=== PATIENT | male | born 1970 | race Caucasian/White ===

== ENCOUNTER 2022-05-17 08:49 | Outpatient (CLI) | payer OTHER, SELFPAY ==
[2022-05-17 09:05] LABS: Basophils Absolute Auto 0.03 K/mm3 (0.00-0.10); Basophils Percent Auto 0.3 % (0.0-1.0); Eosinophils Absolute Auto 0.55 K/mm3 (0.02-0.50); Eosinophils Percent Auto 5.1 % (1.0-6.0); Hematocrit 41.3 % (40.0-54.0); Hemoglobin 13.7 g/dL (14.0-18.0); Immature Granulocyte Absolute 0.04 K/mm3 (0.00-0.00); Immature Granulocyte Percent A 0.4 % (0.0-0.0); Lymphocytes Percent Auto 13.9 % (18.0-42.0); Mean Corpuscular HGB Conc 33.2 g/dL (32.0-36.0); Mean Corpuscular Hemoglobin 28.8 pg (27.0-31.0); Mean Corpuscular Volume 86.8 fL (78.0-102.0); Mean Platelet Volume 10.6 fl (8.7-11.0); Monocytes Percent Auto 8.3 % (2.0-11.0); Neutrophils Absolute Auto 7.8 K/mm3 (1.7-7.2); Platelet Count Result 246 K/mm3 (150-420); Red Blood Count 4.76 M/mm3 (4.70-6.10); Red Cell Distribution Width 13.2 % (11.6-14.4); White Blood Count 10.8 K/mm3 (4.8-10.8)
[2022-05-17 09:06] LABS: Add Urine Microscopic? NO; Appearance Urine Clear (Clear); Bilirubin Urine Negative (Negative); Blood Urine Negative (Negative); Color Urine Yellow (Yellow); Glucose Urine UA Negative (Negative); Ketones Urine Negative (Negative); Leukocyte Esterase Ur Negative (Negative); Nitrate Urine Negative (Negative); Protein Urine Negative (Negative); Urobilinogen Urine 0.2 mg/dL (0.2-1.0); pH Urine 6.5 (5.0-8.0)
[2022-05-17 09:14] LABS: Creatinine Urine 130.39 mg/dL (40-278); MALB Creatinine Ratio 40.6 mg/g (0-30)
[2022-05-17 09:50] LABS: Alanine Aminotransferase 25 U/L (16-63); Albumin Level 3.5 g/dL (3.4-5.0); Alkaline Phosphatase 53 U/L (46-116); Anion Gap 9 mmol/L (8-16); Aspartate Amino Transferase 17 U/L (15-37); Bilirubin,Total 0.9 mg/dL (0.00-1.00); Blood Urea Nitrogen 23 mg/dL (7-18); Calcium 9.1 mg/dL (8.5-10.1); Carbon Dioxide 25 mmol/L (21-32); Chloride 107 mmol/L (98-108); Cholesterol 105 mg/dL (0-200); Creatine Kinase 135 U/L (39-308); Estimated Glomerular Filt Rate 56; Free T3 2.25 pg/mL (2.18-3.98); Free T4 Free Thyroxine 1.05 ng/dL (0.76-1.46); Glucose 92 mg/dL (70-99); HDL Direct 43 mg/dL (40-60); LDL Cholesterol Calculated 47 mg/dL (<130); NT Pro B Type Natriuretic Pept 113 pg/mL (0-125); Osmolality Calculated 295 mOsm/kg (285-295); Potassium 4.3 mmol/L (3.5-5.1); Prostate Specific Antigen 0.3 ng/mL (< OR = 4.0); Sodium 141 mmol/L (136-145); Thyroid Stimulating Hormone 1.53 uIU/mL (0.36-3.74); Total Protein 7.3 g/dL (6.4-8.2); Triglycerides 77 mg/dL (0-150)
== END 2022-05-17 08:50 | disposition home or self-care (01) ==
LOC: CHSLAB 08:52
PROVIDERS: PCP Internal Medicine; Visit Provider Internal Medicine
DX: E78.2 Mixed hyperlipidemia (principal); E11.65 Type 2 diabetes mellitus with hyperglycemia; I25.10 Atherosclerotic heart disease of native coronary artery without angina pectoris; I10 Essential (primary) hypertension; Z12.5 Encounter for screening for malignant neoplasm of prostate; R53.82 Chronic fatigue, unspecified; I48.20 Chronic atrial fibrillation, unspecified; R06.00 Dyspnea, unspecified
CPT/HCPCS: 36415; 80053; 80061; 81003; 82043; 82550; 83036; 83880; 84153; 84439; 84443; 84481; 85025; G0103

== ENCOUNTER 2022-07-29 10:51 | Outpatient (CLI) | payer OTHER, SELFPAY ==
--- NOTE | ~2022-07-29 | XR_ITS ---
EXAM: XR foot RT min 3V DATE: 07/29/2022 11:21 HISTORY: dumbbell dropped on foot 1wk ago, dorsal pain/swelling/wound . COMPARISON: None available. FINDINGS: Normal mineralization. No fracture or dislocation. No lytic or blastic lesion. Plantar and Achilles enthesopathy. Degenerative changes in the tibiotalar joint and multiple midfoot joints. Pro minent os navicularis, which can be a source of chronic medial pain in some patients. No erosion or p eriosteal change. Dorsal soft tissue swelling/contusion. Vascular calcification. IMPRESSION: No acute osseous finding in the right foot. Reviewed, dictated and finalized at location K.
== END 2022-07-29 10:52 | disposition home or self-care (01) ==
LOC: CHSIMG 10:54
PROVIDERS: PCP Internal Medicine; Visit Provider Internal Medicine
DX: S99.921A Unspecified injury of right foot, initial encounter (principal)
CPT/HCPCS: 73630

== ENCOUNTER 2023-01-10 08:37 | Outpatient (CLI) | payer OTHER, SELFPAY ==
[2023-01-10 08:54] LABS: Basophils Absolute Auto 0.04 K/mm3 (0.00-0.10); Basophils Percent Auto 0.4 % (0.0-1.0); Eosinophils Absolute Auto 0.62 K/mm3 (0.02-0.50); Eosinophils Percent Auto 6.6 % (1.0-6.0); Hematocrit 41.6 % (40.0-54.0); Hemoglobin 13.6 g/dL (14.0-18.0); Immature Granulocyte Absolute 0.02 K/mm3 (0.00-0.00); Immature Granulocyte Percent A 0.2 % (0.0-0.0); Lymphocytes Absolute Auto 1.77 K/mm3 (1.10-4.50); Lymphocytes Percent Auto 18.9 % (18.0-42.0); Mean Corpuscular HGB Conc 32.7 g/dL (32.0-36.0); Mean Corpuscular Hemoglobin 28.3 pg (27.0-31.0); Mean Corpuscular Volume 86.7 fL (78.0-102.0); Mean Platelet Volume 10.5 fl (8.7-11.0); Monocytes Absolute Auto 0.97 K/mm3 (0.10-0.90); Monocytes Percent Auto 10.3 % (2.0-11.0); Neutrophils Percent Auto 63.6 % (50.0-70.0); Platelet Count Result 250 K/mm3 (150-420); Red Cell Distribution Width 13.4 % (11.6-14.4); White Blood Count 9.4 K/mm3 (4.8-10.8)
[2023-01-10 08:55] LABS: Add Urine Microscopic? YES; Appearance Urine Clear (Clear); Bilirubin Urine Negative (Negative); Blood Urine Trace-Intact (Negative); Color Urine Light Yellow (Yellow); Glucose Urine UA Negative (Negative); Ketones Urine Negative (Negative); Leukocyte Esterase Ur Negative LEU/UL (Negative); Nitrate Urine Negative (Negative); Protein Urine 2+ (Negative); Urobilinogen Urine 0.2 mg/dL (0.2-1.0); pH Urine 7.5 (5.0-8.0)
[2023-01-10 09:02] LABS: WBC Urine 0-3 /hpf (0-3)
[2023-01-10 09:03] LABS: Bacteria Urine None seen /hpf; Squamous Epithelial Cell Urine Rare /hpf (Few)
[2023-01-10 09:10] LABS: Hemoglobin A1C 6.8 % (<5.7)
[2023-01-10 10:16] LABS: Alanine Aminotransferase 11 U/L (16-63); Albumin Level 3.5 g/dL (3.4-5.0); Alkaline Phosphatase 66 U/L (46-116); Anion Gap 10 mmol/L (8-16); Aspartate Amino Transferase 13 U/L (15-37); Bilirubin,Total 0.5 mg/dL (0.00-1.00); Blood Urea Nitrogen 17 mg/dL (7-18); Calcium 8.5 mg/dL (8.5-10.1); Carbon Dioxide 26 mmol/L (21-32); Chloride 105 mmol/L (98-108); Cholesterol 131 mg/dL (0-200); Creatine Kinase 126 U/L (39-308); Estimated Glomerular Filt Rate > 60; Free T3 2.81 pg/mL (2.18-3.98); Free T4 Free Thyroxine 1.03 ng/dL (0.76-1.46); Glucose 210 mg/dL (70-99); HDL Direct 47 mg/dL (40-60); LDL Cholesterol Calculated 68 mg/dL (<130); Osmolality Calculated 299 mOsm/kg (285-295); Potassium 4.2 mmol/L (3.5-5.1); Sodium 141 mmol/L (136-145); Thyroid Stimulating Hormone 2.07 uIU/mL (0.36-3.74); Triglycerides 82 mg/dL (0-150)
== END 2023-01-10 08:38 | disposition home or self-care (01) ==
LOC: CHSLAB 08:39
PROVIDERS: PCP Internal Medicine; Visit Provider Internal Medicine
DX: E11.59 Type 2 diabetes mellitus with other circulatory complications (principal); E78.2 Mixed hyperlipidemia; I10 Essential (primary) hypertension
CPT/HCPCS: 36415; 80053; 80061; 81001; 82550; 83036; 84439; 84443; 84481; 85025

== ENCOUNTER → 2023-07-01 15:10 | Outpatient (REF) | payer OTHER, SELFPAY | LOC: ANHLAB 15:10 | PROVIDERS: PCP Internal Medicine; Visit Provider Plastic Surgery | DX: C44.629 Squamous cell carcinoma of skin of left upper limb, including shoulder (principal) | CPT/HCPCS: 88305 ==

== ENCOUNTER 2023-11-05 00:30 | Day surgery (SDC) | payer OTHER, SELFPAY ==
[2023-11-04 08:38] VITALS: BMI 41.9
--- NOTE | 2023-11-04 08:42 | PC.NURSE ---
Report to the Outpatient Waiting Room, entrance under the green pavilion located off [facility], at time 1200 on date 11/05/23. Planned Procedure Time: 1400 . Time changes happen often and if your time is changed the preop area will call you the afternoon before. - You and your visitor will be asked to self-screen and do not enter if you have any COVID symptoms. - A mask is optional within the hospital at this time. Patients may have clear liquids (water, carbonated beverages, clear teas, apple juice) until 8 hours prior to surgery with a maximum of 20 ounces. - No food from midnight until time of surgery Take the following medications with a SIP of water the morning of surgery: DOFETILIDE, ISOSORBIDE, METOPROLOL, NIFEDIPINE DO NOT STOP ANY OF YOUR OTHER PRESCRIPTION MEDICATIONS PRIOR TO SURGERY ?EXCEPT THE FOLLOWING Medications to discontinue per physician: ELIQUIS, ASPIRIN Date to take last dose: CHECK WITH DR. JUAREZ Please no make-up, nail uzbek, hairspray, perfume, deodorant, or body powder the day of surgery. No jewelry (including any body piercings) or valuables the day of surgery, leave them at home. Please take a shower or bath the night before, or the morning of, surgery with an antibacterial soap. Wear comfortable, loose fitting clothing. - Jewelry must be removed prior to entering the operating room. Rings and piercings that are not removed may be cut off. - The hospital will not accept responsibility for valuables. - Please leave all valuables, including medications, at home the day of surgery. If you are going home after surgery, a licensed pack train driver must drive you home. - NO public transportation without another adult if you receive anesthesia. - We recommend that an adult stay with you for 24 hours following discharge. - We also recommend that you do not drive, make important decision, drink alcoholic beverages, or take any drugs that were not prescribed by your health care provider for at least 24 hours after your discharge time. Follow any additional instructions given to you from your surgeon. If you or anyone in your household have experienced Covid symptoms in the past week, please notify your surgeon or the nurse liaison at the phone number below for possible testing. Telephone instructions given to PT - KATELYNN NICK and asked if any additional questions and then verbalized understanding. Patient advised to call surgeon office or pre surgery nurse liaison [phone] if any additional questions.
[2023-11-05] VITALS (8 sets, daily range): BP systolic 126–151; BP diastolic 56–75; PULSE 46–51; RESP 12–20; TEMP 36.7; O2SAT 93–98
--- NOTE | 2023-11-05 09:38 | P.OP_ITS ---
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 The patient signed the consent form. PROCEDURE IN DETAIL: The patient taken back to OR on the stretcher in supine position. Time out performed with anesthesia, surgeon and staff agreeing on patient's name site and surgery to be performed SCDs were placed on the lower extremities and inflated antibiotics were given IV After anesthesia administered sedation I injected {15}cc 1%lido with epi and 0.5% marcaine plain at the operative sites The?{left upper extremity}?was prepped and draped in sterile fashion I measured 1cm radial margin around the base of the lesion on dorsum of left hand. I made incisions with 15 blade scalpel through skin and dermis. DIssection with littler scissors and bovie was carried down to extensor tenosy novium. No branch of the dorsal radial sensory was identified at proximal aspect of wound prior to further resection. Adter excision of lesion with 1cm margin I proceeded with additional excision of distal, radial, ulnar, proximal and deep margins to send for frozen section. I irrigated with NS and hemostasis with bovie. The defect measured roughly 5x6cm. After receiving confirmation from pathologist that all 5 frozen sections were negative I proceeded with harvesting a full thickness skin graft form the upper inner arm. This was done with local injection as above, 15 blade scalpel and b ovie. I undermined wound edges and closed with 3-0 vicryl and 4-0 monocryl. The ftsg was defatted with iris scissors and trimmed approrpiately. It was then sewn into place with 3-0 nylon at multiple corners tacking it into place and then 4-0 chromic was used the sew the rest of the graft into place. Small incisions were made in graft to allow for drainage and minimize seroma/hematoma and 4-0 chromic used at points to secure graft to wound bed making sure not to involve extensor tendons. A xeroform and cotton ball bolster was sewn into place using the previously placed 3-0 nylon sutures. A dressing of 4x4, una, volar splint and callum was applied to the hand and mastisol. steri-strip, 4x4 and callum to the donor site. The hand and digits were warm and well perfused. The patient was awaken from anesthesia and transferred to recovery in stable conditiion. Complications - none EBL- 10cc Disposition - home in stable conditions [facility] [place] Billing Surgery - Charge Forward: Surgery Billing ([id number] and [id number] and [id number])
--- NOTE | 2023-11-05 09:38 | WPDHPUPDATE1 ---
History and Physical Update Update Date/Time: 11/05/23 09:38 Patient seen and examined in pre-operative holding area. No interval change in medical history or symptoms. Patient recalls previous discussion of benefits and alternatives to procedure. Continues to desire to proceed with re-excision left hand squamous cell carcinoma possible complex closure, local flap, or possible full thickness skin grafting . Reviewed procedure, post-op expectations and risks including but not limited to bleeding, infection, injury to tendon/nerve/vessel, decreased hand function, stiffness, RSD, donor site complications, partial/total graft loss, recurrence, no change or worsening of symptoms. I discussed the possible use of assistants and their participation in the case. Patient stated understanding and signed the consent form wishing to proceed.
[2023-11-05] MEDS: LACTATED RINGERS 1,000 ML 30 ML IV CONT ×2 (12:30→15:40)
[2023-11-05 12:41] LABS: Glucose Point of Care 159 mg/dl (65-105)
[2023-11-05 12:49] LABS: Anion Gap 5 mmol/L (8-16); Blood Urea Nitrogen 17 mg/dL (9-20); Calcium 9.2 mg/dL (8.4-10.2); Carbon Dioxide 26 mmol/L (22-30); Chloride 106 mmol/L (98-107); Estimated CRCL calculation 102 ml/min; Estimated Glomerular Filt Rate > 60; Glucose 178 mg/dL (65-110); Potassium 4.3 mmol/L (3.4-5.0); Sodium 137 mmol/L (137-145)
--- NOTE | 2023-11-05 13:20 | WPDANESEPPF ---
Anes - Initial Pre Proc Eval Procedure: Operation Date: 11/05/23 14:00 Proposed Procedures p Excision Left Dorsal Hand Lesion, Possible Complex Closure, Possible Full Thickness Skin Graft - Leilani White MD Date/Time: 11/05/23 13:20 Surgeon: Leilani White MD Pre Op Diagnosis: lesion bone left hand Patient Data Age: 53 Gender: M Height: 1.83 m Weight: 135.4 kg Last Vital Signs Temp 36.7 C 11/05/23 11:55 Pulse 49 L 11/05/23 11:55 Resp 18 11/05/23 11:55 BP 137/57 L 11/05/23 11:55 Pulse Ox 98 11/05/23 11:55 O2 Del Method Room Air 11/05/23 11:55 Allergies Allergy/AdvReac Type Severity Reaction Status Date / Time No Known Allergies Allergy Unverified 11/05/23 12:41 Home Medications Medication Instructions Recorded Confirmed Type apixaban 5 mg tablet (Eliquis) 5 mg PO BID 07/01/23 11/05/23 History aspirin 81 mg tablet,delayed 81 mg PO DAILY 07/01/23 11/05/23 History release (Adult Low Dose Aspirin) atorvastatin 40 mg tablet 40 mg PO DAILY 07/01/23 11/04/23 History dofetilide 500 mcg capsule 500 mcg PO Q12H 07/01/23 11/04/23 History furosemide 20 mg tablet 20 mg PO QAM 07/01/23 11/04/23 History glipizide 5 mg tablet 5 mg PO TID 07/01/23 11/04/23 History hydralazine 50 mg tablet 50 mg PO TID 07/01/23 11/04/23 History isosorbide mononitrate 30 mg 30 mg PO DAILY 07/01/23 11/04/23 History tablet,extended release 24 hr lisinopril 20 mg tablet 20 mg PO DAILY 07/01/23 11/04/23 History metformin 500 mg tablet 500 mg PO BID 07/01/23 11/04/23 History metoprolol succinate 100 mg 100 mg PO BID 07/01/23 11/04/23 History tablet,extended release 24 hr nifedipine 60 mg tablet,extended 60 mg PO DAILY 07/01/23 11/04/23 History release sitagliptin phosphate 100 mg 100 mg PO DAILY 07/01/23 11/04/23 History tablet (Januvia) acetaminophen 300 mg-codeine 30 mg 1 tablet PO Q6H PRN pain #14 tabs 11/05/23 Rx tablet cephalexin 500 mg capsule 500 mg PO Q8H #21 caps 11/05/23 Rx Laboratory Tests 11/05/23 11/05/23 12:27 12:39 Sodium 137 mmol/L (137-145) Potassium 4.3 mmol/L (3.4-5.0) Chloride 106 mmol/L (98-107) Carbon Dioxide 26 mmol/L (22-30) Anion Gap 5 L mmol/L (8-16) BUN 17 mg/dL (9-20) Creatinine 1.10 mg/dL (0.7-1.3) Estim Creat Clear Calc 102 ml/min Estimated GFR > 60 (59 - ) Glucose 178 H mg/dL (65-110) POC Capillary Glucose 159 H mg/dl (65-105) Calcium 9.2 mg/dL (8.4-10.2) Patient hx anesthesia problems: none Family hx anesthesia problems: none Results Review: All pre-operative results and documents have been reviewed as part of the pre-operative evaluation. [facility] Family History Family History Father Diabetes mellitus Hypertension Heart disease Social History Social History Smoking status: Never smoker Smokeless tobacco user: chewing tobacco Alcohol intake: current Drinks per week: 2 Substance use: never Substance use type: does not use Lack of Transportation: No Lack of Food: Never True Current Housing: I Have Housing Concerned About Future Housing: No Difficulty Paying Gas/Electric Bills: No Difficulty Paying for Meds: No Currently Unemployed: No Education: Decline to Answer Difficulty w/ Childcare or Family Care: No Living arrangements: with friend(s) Additional living arrangements comments: [facility] Spiritual care concerns: No Anes - Eval Final PreProcedure Day of Procedure 11/05/23 13:20 Patient weight: morbidly obese Heart: regular rate and rhythm Lungs: decreased breath sounds Airway: Mallampati scale class II Neurological: alert and oriented Last oral intake: >/= 8 hours ASA classification: III Emergent: no Anesthetic plan: proceed Anesthesia type and monitoring: gener
[2023-11-05] MEDS: ceFAZolin 3 GM/D5W 100 ML 100 ML IVPB (13:51)
[2023-11-05] MEDS: LIDO 1%/EPINEPHRINE 1:100,000 50 ML VIAL 15 ML INFILTRATE (15:18)
--- NOTE | 2023-11-05 16:07 | SUR.PHASEI ---
1605: Simple mask removed.
== END 2023-11-05 17:26 | disposition home or self-care (01) ==
PROVIDERS: PCP Internal Medicine; Visit Provider Plastic Surgery
PROC: (CPT 11626; principal; 2023-11-05 14:00)
DX: C44.629 Squamous cell carcinoma of skin of left upper limb, including shoulder (principal); Z79.01 Long term (current) use of anticoagulants; Z79.82 Long term (current) use of aspirin; Z79.84 Long term (current) use of oral hypoglycemic drugs; F17.220 Nicotine dependence, chewing tobacco, uncomplicated; E66.01 Morbid (severe) obesity due to excess calories; Z68.41 Body mass index [BMI] 40.0-44.9, adult
CPT/HCPCS: 11626; 15240; 15241; 36415; 80048; 82948; 88305; 88331; A9270; J0690; J2250; J3010; J7120

== ENCOUNTER 2023-12-12 08:57 | Outpatient (CLI) | payer OTHER, SELFPAY ==
[2023-12-12 09:17] LABS: Basophils Absolute Auto 0.04 K/mm3 (0.00-0.10); Basophils Percent Auto 0.4 % (0.0-1.0); Eosinophils Absolute Auto 0.57 K/mm3 (0.02-0.50); Eosinophils Percent Auto 5.9 % (1.0-6.0); Hematocrit 42.9 % (40.0-54.0); Immature Granulocyte Absolute 0.03 K/mm3 (0.00-0.00); Immature Granulocyte Percent A 0.3 % (0.0-0.0); Lymphocytes Absolute Auto 1.67 K/mm3 (1.10-4.50); Lymphocytes Percent Auto 17.4 % (18.0-42.0); Mean Corpuscular HGB Conc 32.6 g/dL (32.0-36.0); Mean Corpuscular Hemoglobin 27.2 pg (27.0-31.0); Mean Corpuscular Volume 83.5 fL (78.0-102.0); Mean Platelet Volume 9.9 fl (8.7-11.0); Monocytes Absolute Auto 1.04 K/mm3 (0.10-0.90); Monocytes Percent Auto 10.8 % (2.0-11.0); Neutrophils Absolute Auto 6.3 K/mm3 (1.7-7.2); Neutrophils Percent Auto 65.2 % (50.0-70.0); Platelet Count Result 249 K/mm3 (150-420); Red Blood Count 5.14 M/mm3 (4.70-6.10); Red Cell Distribution Width 13.3 % (11.6-14.4); White Blood Count 9.6 K/mm3 (4.8-10.8)
[2023-12-12 09:18] LABS: Appearance Urine Clear (Clear); Bilirubin Urine Negative (Negative); Blood Urine Trace-Intact (Negative); Color Urine Light Yellow (Yellow); Glucose Urine UA Negative (Negative); Ketones Urine Negative (Negative); Leukocyte Esterase Ur Negative LEU/UL (Negative); Nitrate Urine Negative (Negative); Protein Urine 2+ (Negative); Urobilinogen Urine 0.2 mg/dL (0.2-1.0)
[2023-12-12 09:23] LABS: Add Urine Microscopic? YES; WBC Urine None seen /hpf (0-3)
[2023-12-12 09:24] LABS: Bacteria Urine Rare /hpf
[2023-12-12 09:25] LABS: Hemoglobin A1C 7.8 % (<5.7)
[2023-12-12 10:11] LABS: Alanine Aminotransferase 31 U/L (16-63); Albumin Level 3.2 g/dL (3.4-5.0); Alkaline Phosphatase 73 U/L (46-116); Anion Gap 8 mmol/L (8-16); Aspartate Amino Transferase 16 U/L (15-37); Bilirubin,Total 0.8 mg/dL (0.00-1.00); Blood Urea Nitrogen 15 mg/dL (7-18); Calcium 8.8 mg/dL (8.5-10.1); Carbon Dioxide 28 mmol/L (21-32); Chloride 101 mmol/L (98-108); Cholesterol 148 mg/dL (0-200); Estimated Glomerular Filt Rate > 60; Free T3 2.32 pg/mL (2.18-3.98); Free T4 Free Thyroxine 0.93 ng/dL (0.76-1.46); Glucose 179 mg/dL (70-99); HDL Direct 47 mg/dL (40-60); LDL Cholesterol Calculated 64 mg/dL (<130); Osmolality Calculated 288 mOsm/kg (285-295); Sodium 137 mmol/L (136-145); Thyroid Stimulating Hormone 2.47 uIU/mL (0.36-3.74); Triglycerides 183 mg/dL (0-150)
[2023-12-14 14:44] LABS: Creatine Kinase 63 U/L (39-308)
== END 2023-12-12 08:58 | disposition home or self-care (01) ==
PROVIDERS: PCP Internal Medicine; Visit Provider Internal Medicine
DX: N39.0 Urinary tract infection, site not specified (principal); E11.59 Type 2 diabetes mellitus with other circulatory complications; E11.65 Type 2 diabetes mellitus with hyperglycemia; E78.2 Mixed hyperlipidemia; I10 Essential (primary) hypertension; R53.83 Other fatigue
CPT/HCPCS: 36415; 80053; 80061; 81001; 82550; 83036; 84439; 84443; 84481; 85025

== ENCOUNTER 2024-05-18 19:30 | Emergency (ER) | payer OTHER, SELFPAY ==
--- NOTE | ~2024-05-18 | XR_ITS ---
EXAM: XR ankle LT min 3V, XR foot LT min 3V DATE: 05/18/2024 20:00 HISTORY: twisted his left leg . COMPARISON: None available. FINDINGS: Normal mineralization. No fracture or dislocation. No lytic or blastic lesion. Plantar ent hesopathy. Mild scattered degenerative changes. No erosion or periosteal change. Ankle and forefoot s oft tissue swelling. IMPRESSION: No acute osseous finding in the left ankle or foot. Reviewed, dictated and finalized at location K. IMPRESSION: No acute osseous finding in the left ankle or foot.
[2024-05-18 19:34] VITALS: BP 139/97; PULSE 80; RESP 18; TEMP 37.2; O2SAT 95
--- NOTE | 2024-05-18 19:41 | ED.LOWEXIN ---
HPI - Extremity Injury (Lower) General Chief Complaint: Extremity Injury, Lower Stated Complaint: injured ankle Time Seen by Provider: 05/18/24 19:32 Source: patient Mode of arrival: ambulatory Limitations: no limitations History of Present Illness HPI Narrative: 54-year-old with history of hypertension, dyslipidemia, diabetes mellitus coronary artery disease , atrial fibrillation on Eliquis chronic leg swelling presents to the ER after he -- inverted his left ankle yesterday and presents with bilateral foot and ankle pain. is unable to bear weight. No other injuries noted. MD complaint: ankle injury Onset (ago): day(s) ( One day) Injury: Left: ankle Type of Injury: eversion Place: work Severity: severe Relieving factors: immobilization Exacerbating factors: weight bearing Other symptoms: none Related Data Home Medications Medication Instructions Recorded Confirmed apixaban 5 mg tablet (Eliquis) 5 mg PO BID 07/01/23 05/18/24 aspirin 81 mg tablet,delayed 81 mg PO DAILY 07/01/23 05/18/24 release (Adult Low Dose Aspirin) atorvastatin 40 mg tablet 40 mg PO DAILY 07/01/23 05/18/24 dofetilide 500 mcg capsule 500 mcg PO Q12H 07/01/23 05/18/24 furosemide 20 mg tablet 20 mg PO QAM 07/01/23 05/18/24 glipizide 5 mg tablet 5 mg PO TID 07/01/23 05/18/24 hydralazine 50 mg tablet 50 mg PO TID 07/01/23 05/18/24 isosorbide mononitrate 30 mg 30 mg PO DAILY 07/01/23 05/18/24 tablet,extended release 24 hr lisinopril 20 mg tablet 20 mg PO DAILY 07/01/23 05/18/24 metformin 500 mg tablet 500 mg PO BID 07/01/23 05/18/24 metoprolol succinate 100 mg 100 mg PO BID 07/01/23 05/18/24 tablet,extended release 24 hr nifedipine 60 mg tablet,extended 60 mg PO DAILY 07/01/23 05/18/24 release sitagliptin phosphate 100 mg 100 mg PO DAILY 07/01/23 05/18/24 tablet (Januvia) Allergies Allergy/AdvReac Type Severity Reaction Status Date / Time No Known Allergies Allergy Verified 05/18/24 20:00 Review of Systems Review of Systems: All systems reviewed & are unremarkable except as noted in HPI and below Constitutional: Constitutional: Reports as per HPI and Reports no additional constitutional complaints Eyes: Eyes: Reports as per HPI and Reports no additional eye complaints ENT: Reports system reviewed and no additional complaints, except as documented and Reports as per HPI Cardiovascular: Cardiovascular: Reports as per HPI and Reports no additional cardiovascular complaints Respiratory: Respiratory: Reports as per HPI and Reports no additional respiratory complaints Gastrointestinal: Gastrointestinal: Reports as per HPI and Reports no additional gastrointestinal complaints Genitourinary: Genitourinary: Reports no additional male genitourinary complaints and Reports as per HPI Musculoskeletal: Musculoskeletal: Reports no additional musculoskeletal complaints and Reports as per HPI Comments: left ankle/ foot pain Integumentary/Breasts: Skin/Breast: Reports system reviewed and no additional complaints, except as docu and Reports as per HPI Neurologic: Reports system reviewed and no additional complaints, except as documented and Reports as per HPI Psychiatric: Psychiatric: Reports no additional psychiatric complaints and Reports as per HPI Endocrine: Endocrine: Reports no additional endocrine complaints and Reports as per HPI Hematologic/Lymphatic: Hematologic/Lymphatic: Reports no additional hematologic/lymphatic complaints and Reports as per HPI Allergic/Immunologic: Allergic/Immunologic: Reports no additional allergic/immunologic complaints and Reports as per HPI [facility] Past Medical History Medical History (Updated 05/18/24 @ 20:22 by Paddy Alarcon MD) Coronary artery disease Diabetes mellitus Dyslipidemia Hypertension Localized swelling of both lower legs Family History Family History Father Diabetes mellitus Hypertension Heart disease S
== END 2024-05-18 21:00 | disposition home or self-care (01) ==
PROVIDERS: Emergency Provider Internal Medicine Critical Care Medicine; PCP Internal Medicine
DX: S93.402A Sprain of unspecified ligament of left ankle, initial encounter (principal); S96.912A Strain of unspecified muscle and tendon at ankle and foot level, left foot, initial encounter; I10 Essential (primary) hypertension; E78.5 Hyperlipidemia, unspecified; E11.9 Type 2 diabetes mellitus without complications; I25.10 Atherosclerotic heart disease of native coronary artery without angina pectoris; I48.91 Unspecified atrial fibrillation; Z79.01 Long term (current) use of anticoagulants; Z79.899 Other long term (current) drug therapy; Z79.84 Long term (current) use of oral hypoglycemic drugs; X58.XXXA Exposure to other specified factors, initial encounter; Y99.0 Civilian activity done for income or pay
CPT/HCPCS: 29515; 73610; 73630; 99283

== ENCOUNTER 2024-06-29 14:37 | Outpatient (RCR) | payer OTHER, SELFPAY ==
--- NOTE | 2024-06-29 17:28 | OPREHPOC ---
Outpatient Therapy Plan of Care This is a Multidisciplinary Plan of Care that may contain components documented by all disciplines (PT, OT, and ST.) PT Problem 1 PT Problem #1 Knowledge Deficit PT Goal 1 Goal The patient will be independent in a home exercise program. Target Visit 4 PT Problem 2 PT Problem #2 Pain PT Goal 1 Goal The patient will report no greater than 2/10 left ankle pain with prolonged standing and walking. Target Visit 12 PT Problem 3 PT Problem #3 Impaired Range of Motion PT Goal 1 Goal The patient will demonstrate 5 degrees of left ankle dorsiflexion and 40 degrees of left ankle plantarflexion AROM to improve gait. Target Visit 12 PT Problem 4 PT Problem #4 Impaired Functional Mobil PT Goal 1 Goal 1. The patient will demonstrate 15% or less self perceived disability per the LEFS. 2. The patient will be able to ambulate 1,200 feet during the 6 minute walk test to return to ambulation required at work. Target Visit 12 PT Problem 5 PT Problem #5 Impaired Strength PT Goal 1 Goal 1. The patient will demonstrate at least 4/5 left ankle strength with MMT. 2. The patient will demonstrate the ability to lift 50# from floor to waist with proper body mechanics in order to return to full duty work. Target Visit 12
--- NOTE | 2024-06-29 17:28 | PTOPEVAL1 ---
Assessment and note entered by Wilma Lozano, PT Evaluation Information Assessment Status Evaluation Diagnosis L ankle and subtalar joint contusion ICD-10 Condition Codes (PT) M25.572 Onset 05/17/24 Subjective Information Jv Meraz reports he injured his left ankle at work on 05/17/24 when he was backing up and twisted on a rock. He went home that evening and it was sore. The next day he continued to have pain so he reported it at work, by the next day it continued to hurt so he had a x-ray that came back normal. The pain persisted so he went to the doctor and a MRI was ordered showed severe bruising but no tears. He was taken off work for 4 weeks and referred to PT. He was in a walking boot from 05/24/24 and still uses it occasionally when he is going to be walking or standing a lot. He notes increased pain along the inner side of his ankle when he has to push off from his left foot and when it rolls to the side when he steps on uneven ground like grass. He was using Tramadol initially for pain control but now only uses rest and ice. Reported Pain Level Pain Score 0: Self Report Assessment PT Clinical Summary Jv Meraz presents with left ankle pain following a sprain sustained at work on 05/17/24. He has difficulty with pushing off with his left foot and walking on uneven terrain. He is currently not working. He objectively demonstrates decreased and painful left ankle AROM, decreased left foot and ankle strength, left ankle edema, impaired gait, impaired balance, and decreased functional abilities. He will benefit from skilled PT to address these limitations. Plan of Care Interventions Electrical Stimulation,Hot Pack/Cold Pack, Intermittent Compression,Manual Therapy,Neuro Re- education,Patient/Caregiver Educati,Therapeutic Activities,Therapeutic Exercise PT Services Indicated Yes Treatment Frequency and 3 times a week for 12 visits Duration These treatments will address the objective and functional deficits as defined above. The patient will be advanced safely and appropriately in order for the patient to progress towards his/her prior level of function. Additional exercises will be introduced and as well as a comprehensive home exercise program upon discharge, if needed, ?to ensure carryover of functional gains achieved in the clinic. This treatment plan has been reviewed and agreement upon by the patient.
--- NOTE | 2024-07-08 16:30 | PCPTNOTE ---
Patient called & cancelled scheduled appointment this date due to [being released back to work. ]
--- NOTE | 2024-07-20 17:41 | OPREHPOC ---
Outpatient Therapy Plan of Care This is a Multidisciplinary Plan of Care that may contain components documented by all disciplines (PT, OT, and ST.) PT Problem 1 PT Problem #1 Knowledge Deficit PT Goal 1 Goal / Goal Update The patient will be independent in a home exercise program. Target Visit 4 Progress Met PT Problem 2 PT Problem #2 Pain PT Goal 1 Goal / Goal Update The patient will report no greater than 2/10 left ankle pain with prolonged standing and walking. Target Visit 12 Progress Met PT Problem 3 PT Problem #3 Impaired Range of Motion PT Goal 1 Goal / Goal Update The patient will demonstrate 5 degrees of left ankle dorsiflexion and 40 degrees of left ankle plantarflexion AROM to improve gait. -met for dorsiflexion, progress toward plantarflexion AROM Target Visit 12 Progress Partially Met PT Problem 4 PT Problem #4 Impaired Functional Mobil PT Goal 1 Goal / Goal Update 1. The patient will demonstrate 15% or less self perceived disability per the LEFS. 2. The patient will be able to ambulate 1,200 feet during the 6 minute walk test to return to ambulation required at work. Target Visit 12 Progress Met PT Problem 5 PT Problem #5 Impaired Strength PT Goal 1 Goal / Goal Update 1. The patient will demonstrate at least 4/5 left ankle strength with MMT. 2. The patient will demonstrate the ability to lift 50# from floor to waist with proper body mechanics in order to return to full duty work. Target Visit 12 Progress Met
--- NOTE | 2024-07-20 17:41 | PTOPDC ---
Assessment and note entered by Wilma Lozano, PT Evaluation Information Assessment Status Discharge Diagnosis L ankle and subtalar joint contusion ICD-10 Condition Codes (PT) M25.572 Onset 05/17/24 Subjective Information Jv Meraz reports his left ankle is doing well. He has been able to return to work and all previous activities without pain. He reports he is doing all his normal work duties without difficulty. Reported Pain Level Pain Score 0: Self Report Assessment PT Clinical Summary Jv Meraz has completed 9 skilled PT visits for L ankle sprain sustained on 05/17/24. He is reporting no pain and has been able to return to full duty work for 1.5 weeks now without pain or difficulty. He demonstrates improved left ankle AROM, improved left ankle strength, improved gait, improved balance, and improved functional abilities. He has met 6.5/7 goals and will be discharged to an independent [facility]. Plan of Care PT Services Indicated No
== END 2024-07-20 17:45 | disposition home or self-care (01) ==
LOC: CHSPT 14:37
PROVIDERS: PCP Internal Medicine; Visit Provider Internal Medicine
DX: M25.572 Pain in left ankle and joints of left foot (principal)
CPT/HCPCS: 97016; 97110; 97112; 97150; 97161; 97530; 97750

== ENCOUNTER 2024-07-04 08:10 | Outpatient (CLI) | payer OTHER, SELFPAY ==
[2024-07-04 08:41] LABS: Add Urine Microscopic? YES; Appearance Urine Clear (Clear); Bilirubin Urine Negative (Negative); Blood Urine Negative (Negative); Color Urine Light Yellow (Yellow); Glucose Urine UA Negative (Negative); Hematocrit 41.6 % (40.0-54.0); Hemoglobin 13.8 g/dL (14.0-18.0); Ketones Urine Negative (Negative); Leukocyte Esterase Ur Negative (Negative); Mean Corpuscular HGB Conc 33.2 g/dL (32-36); Mean Corpuscular Hemoglobin 27.2 pg (27.0-31.0); Mean Corpuscular Volume 81.9 fL (78.0-102.0); Mean Platelet Volume 9.6 fl (8.7-11.0); Nitrate Urine Negative (Negative); Platelet Count Result 366 K/mm3 (150-420); Protein Urine 2+ (Negative); Red Blood Count 5.08 M/mm3 (4.70-6.10); Red Cell Distribution Width 14.3 % (11.6-14.4); Urobilinogen Urine 0.2 mg/dL (0.2-1.0); White Blood Count 10.5 K/mm3 (4.8-10.8)
[2024-07-04 08:48] LABS: Bacteria Urine None seen /hpf; RBC Urine None seen /hpf (0-2); WBC Urine None seen /hpf (0-3)
[2024-07-04 08:52] LABS: Creatinine Urine 75.96 mg/dL (40-278)
[2024-07-04 08:58] LABS: MALB Creatinine Ratio 526.5 mg/g (0-30); Microalbumin Urine Random > 400.0 mg/L
[2024-07-04 09:34] LABS: Hemoglobin A1C 7.8 % (<5.7)
[2024-07-04 09:51] LABS: Alanine Aminotransferase 22 U/L (16-63); Albumin Level 3.2 g/dL (3.4-5.0); Alkaline Phosphatase 84 U/L (46-116); Anion Gap 10 mmol/L (4-12); Aspartate Amino Transferase 15 U/L (15-37); Bilirubin,Total 0.8 mg/dL (0.00-1.00); Blood Urea Nitrogen 14 mg/dL (7-18); Carbon Dioxide 29 mmol/L (21-32); Chloride 101 mmol/L (98-108); Cholesterol 126 mg/dL (0-200); Creatine Kinase 80 U/L (39-308); Estimated Glomerular Filt Rate > 60; Free T3 2.69 pg/mL (2.18-3.98); Free T4 Free Thyroxine 1.14 ng/dL (0.76-1.46); Glucose 149 mg/dL (70-99); HDL Direct 36 mg/dL (40-60); LDL Cholesterol Calculated 49 mg/dL (<130); Magnesium 1.3 mg/dL (1.8-2.4); NT Pro B Type Natriuretic Pept 166 pg/mL (0-125); Osmolality Calculated 293 mOsm/kg (285-295); Potassium 3.6 mmol/L (3.5-5.1); Prostate Specific Antigen 0.5 ng/mL (< OR = 4.0); Sodium 140 mmol/L (136-145); Thyroid Stimulating Hormone 2.27 uIU/mL (0.36-3.74); Total Protein 7.1 g/dL (6.4-8.2); Triglycerides 205 mg/dL (0-150)
== END 2024-07-04 08:11 | disposition home or self-care (01) ==
LOC: CHSLAB 08:12
PROVIDERS: PCP Internal Medicine; Visit Provider Internal Medicine
DX: E11.59 Type 2 diabetes mellitus with other circulatory complications (principal); E78.2 Mixed hyperlipidemia; I10 Essential (primary) hypertension; R53.82 Chronic fatigue, unspecified; I48.20 Chronic atrial fibrillation, unspecified
CPT/HCPCS: 36415; 80053; 80061; 81001; 82043; 82550; 83036; 83735; 83880; 84153; 84439; 84443; 84481; 85027; G0103

== ENCOUNTER 2025-01-13 06:58 | Outpatient (CLI) | payer OTHER, SELFPAY ==
[2025-01-13 07:19] LABS: Basophils Absolute Auto 0.03 K/mm3 (0.00-0.10); Basophils Percent Auto 0.4 % (0.0-1.0); Eosinophils Absolute Auto 0.52 K/mm3 (0.02-0.50); Eosinophils Percent Auto 6.2 % (1.0-6.0); Hematocrit 40.8 % (40.0-54.0); Hemoglobin 13.3 g/dL (14.0-18.0); Immature Granulocyte Absolute 0.02 K/mm3 (0.00-0.00); Immature Granulocyte Percent A 0.2 % (0.0-0.0); Lymphocytes Absolute Auto 1.52 K/mm3 (1.10-4.50); Mean Corpuscular HGB Conc 32.6 g/dL (32-36); Mean Corpuscular Hemoglobin 27.2 pg (27.0-31.0); Mean Corpuscular Volume 83.4 fL (78.0-102.0); Mean Platelet Volume 10.2 fl (8.7-11.0); Monocytes Absolute Auto 1.08 K/mm3 (0.10-0.90); Monocytes Percent Auto 12.8 % (2.0-11.0); Neutrophils Absolute Auto 5.27 K/mm3 (1.70-7.20); Neutrophils Percent Auto 62.4 % (50.0-70.0); Platelet Count Result 261 K/mm3 (150-420); Red Blood Count 4.89 M/mm3 (4.70-6.10); Red Cell Distribution Width 13.2 % (11.6-14.4); White Blood Count 8.4 K/mm3 (4.8-10.8)
[2025-01-13 07:21] LABS: Add Urine Microscopic? YES; Appearance Urine Clear (Clear); Bilirubin Urine Negative (Negative); Blood Urine Trace-intact (Negative); Color Urine Light Yellow (Yellow); Glucose Urine UA Negative (Negative); Ketones Urine Negative (Negative); Leukocyte Esterase Ur Negative LEU/UL (Negative); Nitrate Urine Negative (Negative); Protein Urine 2+ (Negative); Urobilinogen Urine 0.2 mg/dL (0.2-1.0)
[2025-01-13 07:30] LABS: Bacteria Urine Rare /hpf; RBC Urine 0-2 /hpf (0-2); WBC Urine None seen /hpf (0-3)
[2025-01-13 07:32] LABS: Creatinine Urine 73.36 mg/dL (40-278)
[2025-01-13 07:50] LABS: MALB Creatinine Ratio 545.2 mg/g (0-30); Microalbumin Urine Random > 400.0 mg/L
[2025-01-13 08:40] LABS: Alanine Aminotransferase 24 U/L (16-63); Albumin Level 3.3 g/dL (3.4-5.0); Alkaline Phosphatase 77 U/L (46-116); Anion Gap 6 mmol/L (4-12); Aspartate Amino Transferase 12 U/L (15-37); Bilirubin,Total 0.6 mg/dL (0.00-1.00); Blood Urea Nitrogen 21 mg/dL (7-18); Calcium 9.1 mg/dL (8.5-10.1); Carbon Dioxide 27 mmol/L (21-32); Chloride 102 mmol/L (98-108); Cholesterol 129 mg/dL (0-200); Creatine Kinase 88 U/L (39-308); Estimated Glomerular Filt Rate 57; Free T4 Free Thyroxine 0.94 ng/dL (0.76-1.46); Glucose 158 mg/dL (70-99); HDL Direct 52 mg/dL (40-60); LDL Cholesterol Calculated 58 mg/dL (<130); NT Pro B Type Natriuretic Pept 315 pg/mL (0-125); Osmolality Calculated 286 mOsm/kg (285-295); Potassium 4.3 mmol/L (3.5-5.1); Sodium 135 mmol/L (136-145); Thyroid Stimulating Hormone 3.06 uIU/mL (0.36-3.74); Total Protein 6.8 g/dL (6.4-8.2); Triglycerides 94 mg/dL (0-150)
== END 2025-01-13 06:59 | disposition home or self-care (01) ==
LOC: CHSLAB 07:02
PROVIDERS: PCP Internal Medicine; Visit Provider Internal Medicine
DX: E11.65 Type 2 diabetes mellitus with hyperglycemia (principal); E78.2 Mixed hyperlipidemia; I10 Essential (primary) hypertension; I48.20 Chronic atrial fibrillation, unspecified; N39.0 Urinary tract infection, site not specified; R53.82 Chronic fatigue, unspecified
CPT/HCPCS: 36415; 80053; 80061; 81001; 82043; 82550; 83880; 84439; 84443; 84481; 85025

== ENCOUNTER 2025-08-22 07:07 | Outpatient (CLI) | payer OTHER, SELFPAY ==
[2025-08-22 07:32] LABS: Hematocrit 40.3 % (40.0-54.0); Hemoglobin 13.0 g/dL (14.0-18.0); Immature Granulocyte Percent A 0.2 % (0.0-0.0); Lymphocytes Absolute Auto 1.47 K/mm3 (1.10-4.50); Mean Corpuscular HGB Conc 32.3 g/dL (32-36); Mean Corpuscular Hemoglobin 27.5 pg (27.0-31.0); Mean Corpuscular Volume 85.4 fL (78.0-102.0); Nucleated Red Blood Cells Absolute Auto 0.00 K/mm3 (0.00-0.00); Nucleated Red Blood Cells Perc 0.0 % (0-0.0); Platelet Count Result 236 K/mm3 (150-420); Red Blood Count 4.72 M/mm3 (4.70-6.10); White Blood Count 9.7 K/mm3 (4.8-10.8)
[2025-08-22 07:37] LABS: Add Urine Microscopic? YES; Appearance Urine Clear (Clear); Glucose Urine UA Negative (Negative); Leukocyte Esterase Ur Negative LEU/UL (Negative); Nitrate Urine Negative (Negative); Specific Grav Ur 1.020 (1.010-1.020)
[2025-08-22 07:56] LABS: MALB Creatinine Ratio 254.7 mg/g (0-30)
[2025-08-22 07:57] LABS: Alanine Aminotransferase 18 U/L (6-50); Albumin Level 4.0 g/dL (3.5-5.1); Alkaline Phosphatase 70 U/L (38-126); Anion Gap 10 mmol/L (4-12); Aspartate Amino Transferase 22 U/L (17-59); Bilirubin,Total 0.9 mg/dL (0.2-1.3); Blood Urea Nitrogen 17 mg/dL (9-20); Calcium 9.7 mg/dL (8.4-10.2); Carbon Dioxide 25 mmol/L (22-30); Chloride 105 mmol/L (98-107); Cholesterol 128 mg/dL (0-200); Creatine Kinase 163 U/L (55-170); Estimated Glomerular Filt Rate > 60; Glucose 215 mg/dL (65-110); HDL Direct 44 mg/dL; Iron 111 ug/dL (49-181); Magnesium 1.7 mg/dL (1.6-2.3); Osmolality Calculated 297 mOsm/kg (285-295); Potassium 4.6 mmol/L (3.4-5.0); Sodium 140 mmol/L (137-145); Total Protein 7.6 g/dL (6.3-8.2); Triglycerides 206 mg/dL (<150)
[2025-08-22 08:03] LABS: Hemoglobin A1C 7.1 % (<5.7)
[2025-08-22 08:07] LABS: NT Pro B Type Natriuretic Pept 286 pg/mL (19.9-100)
[2025-08-22 08:15] LABS: Free T4 Free Thyroxine 1.23 ng/dL (0.78-2.19)
[2025-08-22 08:17] LABS: Free T3 3.96 pg/mL (2.18-3.98)
[2025-08-22 08:28] LABS: Prostate Specific Antigen 0.4 ng/mL (< OR = 4.0); Thyroid Stimulating Hormone 3.730 uIU/mL (0.465-4.680)
[2025-08-22 08:32] LABS: Ferritin 15.20 ng/mL (11.1-264)
== END 2025-08-22 07:08 | disposition home or self-care (01) ==
LOC: CHSLAB 07:10
PROVIDERS: PCP Internal Medicine; Visit Provider Internal Medicine
DX: E11.65 Type 2 diabetes mellitus with hyperglycemia (principal); E78.2 Mixed hyperlipidemia; R53.82 Chronic fatigue, unspecified; I10 Essential (primary) hypertension; I25.10 Atherosclerotic heart disease of native coronary artery without angina pectoris; D64.9 Anemia, unspecified; I51.9 Heart disease, unspecified; Z12.5 Encounter for screening for malignant neoplasm of prostate; N39.0 Urinary tract infection, site not specified
CPT/HCPCS: 36415; 80053; 80061; 81001; 82043; 82550; 82728; 83036; 83540; 83735; 83880; 84153; 84439; 84443; 84481; 85025